=== PATIENT | female | born 1990 | race Caucasian/White ===

== ENCOUNTER 2022-03-31 13:03 | Emergency (ER) | payer OTHER ==
[~2022-03-31] VITALS: Ht 177.8 cm; Wt 78.9 kg
--- NOTE | 2022-03-31 14:05 | NUR ---
DR FORTE AT BEDSIDE FOR EVAL
[2022-03-31] MEDS ORDERED: PRED50TA PO (14:16)
[2022-03-31] MEDS ORDERED: FAMO40TA70 PO (14:16)
[2022-03-31] MEDS ORDERED: FAMOTIDINE (20 MG) 20 MG TABLET ONE (14:19)
[2022-03-31] MEDS ORDERED: predniSONE 20 MG TABLET ONE (14:19)
--- NOTE | 2022-03-31 14:27 | NUR ---
Patient discharged to home in stable condition. Written and verbal after care instructions given. Patient verbalizes understanding of instruction. Prescription given to patient with instructions on where to obtain medication.
[2022-03-31 14:29] VITALS: BP 128/74
[2022-03-31] MEDS ORDERED: FAMOTIDINE (20 MG) 20 MG TABLET PO ONE (14:30)
[2022-03-31] MEDS ORDERED: predniSONE 10 MG TABLET PO ONE (14:30)
== END 2022-03-31 14:30 | disposition home or self-care (01) ==
LOC: ER 13:13
DX: T78.40XA Allergy, unspecified, initial encounter (principal); Z79.899 Other long term (current) drug therapy; X58.XXXA Exposure to other specified factors, initial encounter
CPT/HCPCS: 99283; J7512

== ENCOUNTER 2023-08-26 07:55 | Emergency (ER) | payer OTHER ==
[~2023-08-26] VITALS: Ht 177.8 cm; Wt 97.5 kg
[~2023-08-26 07:55] MED LIST: FAMO40TA70 PO; PRED50TA PO
[2023-08-26 08:06] VITALS: BP 123/61; TEMP 98.1; O2SAT 100
[2023-08-26] MEDS ORDERED: dexaMETHasone SOD PHOSPHATE 1 ML ONE (08:16)
[2023-08-26] MEDS: dexaMETHasone SOD PHOSPHATE 10 MG/ML VIAL IM ONE (08:20)
== END 2023-08-26 08:22 | disposition home or self-care (01) ==
LOC: ER 08:15
DX: J02.9 Acute pharyngitis, unspecified (principal); Z79.899 Other long term (current) drug therapy; Z88.0 Allergy status to penicillin
CPT/HCPCS: 99283; 96372; J1100

== ENCOUNTER 2023-11-30 17:40 | Emergency (ER) | payer OTHER ==
[~2023-11-30] VITALS: Ht 177.8 cm; Wt 104.3 kg
[2023-11-30 18:05] VITALS: BP 122/68; TEMP 98.4
[2023-11-30] MEDS ORDERED: TDAP [DIPH/PERTUSSIS/TET] 0.5 ML VIAL IM ONE (18:41)
[2023-11-30] MEDS ORDERED: ACETAMINOPHEN ES 500 MG TABLET ONE (18:41)
[2023-11-30] MEDS: ACETAMINOPHEN ES 500 MG TABLET PO ONE (18:47)
[2023-11-30] MEDS: TDAP [DIPH/PERTUSSIS/TET] 0.5 ML VIAL IM ONE (18:49)
[2023-11-30] MEDS ORDERED: CLIN300C12 PO (19:14)
[2023-11-30 19:22] VITALS: O2SAT 98
== END 2023-11-30 19:25 | disposition home or self-care (01) ==
LOC: ER 17:45
DX: S60.454A Superficial foreign body of right ring finger, initial encounter (principal); L25.8 Unspecified contact dermatitis due to other agents; Z88.0 Allergy status to penicillin; W49.04XA Ring or other jewelry causing external constriction, initial encounter; Y93.89 Activity, other specified; Y92.89 Other specified places as the place of occurrence of the external cause; Y99.8 Other external cause status
CPT/HCPCS: 90715

== ENCOUNTER 2024-01-17 08:26 | Emergency (ER) | payer OTHER ==
[~2024-01-17] VITALS: Ht 177.8 cm; Wt 99.8 kg
[~2024-01-17 08:26] MED LIST changes: +CLIN300C12 PO
[2024-01-17] MEDS: IV NS 0.9% 1,000 ML BAG IV ONE (09:16)
[2024-01-17 09:38] LABS: APPEARANCE,URINE SLIGHTLY CLOUDY (CLEAR); BILIRUBIN,URINE NEGATIVE (NEGATIVE); BLOOD, URINE NEGATIVE Ery/uL (NEGATIVE); COLOR,URINE YELLOW (YELLOW); KETONES,URINE NEGATIVE (NEGATIVE); LEUKOCYTE ESTERASE ,URINE NEGATIVE (NEGATIVE); NITRITE, URINE NEGATIVE (NEGATIVE); PH,URINE 6.5 (5.0-8.0); PROTEIN,URINE NEGATIVE (NEGATIVE); UGLUCOSE NEGATIVE (NEGATIVE); UROBILINOGEN,URINE 0.2 EU/dL (0.2)
[2024-01-17 09:39] LABS: BASOPHILS % (AUTO) 0.7 % (0.0-2.0); EOSINOPHILS # (AUTO) 0.4 K/uL (0.0-0.7); EOSINOPHILS % (AUTO) 6.1 % (0.0-6.0); HEMATOCRIT 38 % (33-45); HEMOGLOBIN 12.7 g/dL (11.5-14.8); LYMPHOCYTES % (AUTO) 29.5 % (20.0-44.0); MEAN CORPUSCULAR HEMOGLOBIN 34 PG (26.0-33.0); MEAN CORPUSCULAR HGB CONC 34 g/dl (31.0-36.0); MEAN CORPUSCULAR VOLUME 99 fL (82-100); MONOCYTES # (AUTO) 0.4 K/uL (0.1-1.30); MONOCYTES % (AUTO) 6.1 % (2.0-12.0); NEUTROPHILS # (AUTO) 3.9 K/uL (1.8-8.9); NEUTROPHILS % (AUTO) 57.6 % (43.0-81.0); PLATELET COUNT (AUTO) 320 K/uL (150-450); RED BLOOD CELL COUNT(AUTO) 3.78 MIL/uL (4.0-5.2); WHITE BLOOD COUNT (AUTO) 6.8 K/uL (4.3-11.0)
[2024-01-17 09:42] LABS: PREGNANCY TEST URINE QUAL NEGATIVE (NEGATIVE)
[2024-01-17 09:47] LABS: BACTERIA,URINE Few /HPF (None Seen); URINE AMORPHOUS URATE Moderate /HPF (None Seen)
[2024-01-17 09:48] LABS: ADD URINE CULTURE YES; SQUAMOUS EPITHELIAL CELL,UR Few /HPF (None Seen)
[2024-01-17 09:49] LABS: RBC,URINE 0-2 /HPF (0-2)
[2024-01-17 09:49] LABS: CALCIUM, SERUM 9.1 mg/dL (8.5-10.1); CARBON DIOXIDE 27 mmol/L (21-32); CHLORIDE 109 mmol/L (98-107); CREATININE 0.9 mg/dL (0.6-1.3); GLUCOSE 79 mg/dL (74-106); POTASSIUM 3.7 mmol/L (3.5-5.1); SODIUM SERUM 145 mmol/L (136-145); UREA NITROGEN, BLOOD 14 mg/dL (7-18)
[2024-01-17 09:54] LABS: AMPHETAMINE, URINE NEGATIVE (NEGATIVE); BARBITURATE, URINE NEGATIVE (NEGATIVE); BENZODIAZEPINE, URINE NEGATIVE (NEGATIVE); CANNABINOID, URINE NEGATIVE (NEGATIVE); COCCAINE, URINE NEGATIVE (NEGATIVE); OPIATE, URINE NEGATIVE (NEGATIVE); PHENCYCLIDINE SCREEN,URINE NEGATIVE (NEGATIVE)
[2024-01-17 09:55] LABS: ALANINE AMINOTRANSFERASE 19 U/L (12-78); ALBUMIN 3.8 g/dL (3.4-5.0); ALKALINE PHOSPHATASE 60 U/L (46-116); ASPARTATE AMINOTRANSFERASE 11 U/L (15-37); BILIRUBIN,DIRECT 0.1 mg/dL (0.0-0.2); BILIRUBIN,TOTAL 0.4 mg/dL (0.2-1.0); TOTAL PROTEIN, SERUM 7.5 g/dL (6.4-8.2)
[2024-01-17 09:57] LABS: ACETAMINOPHEN <10 ug/ml (10-30); SALICYLATE < 0.2 mg/dL (2.8-20.0)
[2024-01-17 09:58] LABS: ALCOHOL, BLOOD < 3 mg/dL (0-10)
[2024-01-17] MEDS: CYANOCOBALAMIN 1,000 MCG/ML VIAL IM ONE (10:00)
[2024-01-17 10:15] LABS: PHOSPHORUS 3.7 mg/dL (2.5-4.9)
[2024-01-17 12:17] VITALS: BP 128/76; TEMP 98.6; O2SAT 100
[2024-01-22] MEDS ORDERED: NITR100C6 PO (14:55)
== END 2024-01-17 11:50 | disposition home or self-care (01) ==
LOC: ER 08:33
DX: R20.2 Paresthesia of skin (principal); T41.0X5A Adverse effect of inhaled anesthetics, initial encounter; M51.379 Other intervertebral disc degeneration, lumbosacral region without mention of lumbar back pain or lower extremity pain; M48.061 Spinal stenosis, lumbar region without neurogenic claudication; Z88.0 Allergy status to penicillin; Z79.52 Long term (current) use of systemic steroids; Y92.89 Other specified places as the place of occurrence of the external cause
CPT/HCPCS: 99285; 96372; 96360; 72131; 85025; 80048; 87086; 80076; 83735; 84100; 84703; 81001; 36415; 82607; 80143; 80320; 80307; J3420; J7030; A4223; G0480